=== PATIENT | female | born 1980 | race Caucasian/White ===

== ENCOUNTER 2017-06-19 17:01 | Emergency (ER) | payer MEDICAID ==
[2017-06-19] MEDS: ACETAMINOPHEN 500 MG TAB PO (19:53)
[2017-06-19 20:13] LABS: URINE PH (Dip) POC 5.5 (5.0-8.5)
[2017-06-19 20:13] LABS: URINE BLOOD (Dip) POC 2+ (NEGATIVE); URINE GLUCOSE (Dip) POC Negative (NEGATIVE); URINE KETONES (Dip) POC Negative (NEGATIVE); URINE LEUKOCYTE EST (Dip) POC Trace (NEGATIVE); URINE NITRITE (Dip) POC Positive (NEGATIVE); URINE TOTAL PROTEIN POC Trace (NEGATIVE)
== END 2017-06-19 22:27 | disposition home or self-care (01) ==
LOC: FTE 17:01
DX: R51 Headache (principal); M54.2 Cervicalgia; R68.84 Jaw pain; N39.0 Urinary tract infection, site not specified; R45.6 Violent behavior
CPT/HCPCS: 70450; 70486; 72125; 81003; 81025; 99285-25